=== PATIENT | male | born 1985 | race Caucasian/White ===

== ENCOUNTER 2024-11-12 04:33 | Emergency (ER) | payer MEDICAID ==
[~2024-11-12] VITALS: Ht 170.2 cm; Wt 93.0 kg
[2024-11-12 04:37] VITALS: O2SAT 99
[2024-11-12 04:40] VITALS: BP 135/79; PULSE 89; RESP 18; TEMP 36.7; O2SAT 98
== END 2024-11-12 05:06 | disposition home or self-care (01) ==
LOC: ER 04:51
DX: T16.1XXA Foreign body in right ear, initial encounter (principal); W44.F4XA Insect entering into or through a natural orifice, initial encounter
CPT/HCPCS: 69200; 99284